=== PATIENT | female | born 1955 | race American Indian/Alaskan Native ===

== ENCOUNTER 2021-04-08 01:53 | Emergency (ER) | payer SELFPAY ==
[2021-04-08] MEDS ORDERED: SODIUM CHLORIDE 0.9% 1000 ML 1,000 ML IV ONE (03:14)
[2021-04-08] MEDS ORDERED: ONDANSETRON 4 MG/2 ML INJ IV ONE (03:15)
--- NOTE | 2021-04-08 03:15 | Emergency Department Report ---
ED General Adult HPI - General Chief complaint: Extremity Injury, Lower Stated complaint: LF ANKLE PAIN PUI?: No Time Seen by Provider: 04/08/21 03:11 Source: patient Mode of arrival: Ambulatory Limitations: Physical Limitation - History of Present Illness Initial comments: Patient is a 65-year-old female that presents emergency room with complaints of left ankle pain. Patient states she fell off her granddaughter scooter. P atient states the pain is a 10 out of 10. Patient states the pain is worsening. Patient denies loss of consciousness. Patient denies hitting her head. Patient denies other injury. While in triage, the patient was found to have low blood pressure 80/41. Patient denies other symptoms. Patient states she is normally hypertensive and has a past medical history of high blood pressure. Patient states she is compliant with her medications. Patient denies recent travel. Patient denies recent international travel. Patient denies exposure to the novel coronavirus. Patient denies sick contacts. Patient denies fever and chills. Patient denies cough. Patient denies diarrhea. Patient denies coming in contact with anybody with symptoms of the novel coronavirus. -: Sudden, hour(s) Location: left, lower extremity Radiation: non-radiation Severity scale (0 -10): 10 Quality: stabbing Consistency: constant Improves with: rest Worsens with: movement Associated Symptoms: denies: confusion, chest pain, cough, diaphoresis, fever/chills, headaches, loss of appetite, malaise, nausea/vomiting, rash, seizure, shortness of breath, syncope, weakness Treatments Prior to Arrival: none - Related Data Previous Rx's Medication Instructions Recorded Last Taken Type oxyCODONE /ACETAMINOPHEN [Percocet 1 tab PO Q4HR PRN #12 tab 04/08/21 Unknown Rx 5/325] Allergies Allergy/AdvReac Type Severity Reaction Status Date / Time No Known Allergies Allergy Unverified 04/08/21 02:32 ED Review of Systems ROS: Stated complaint: LF ANKLE PAIN Other details as noted in HPI Constitutional: denies: chills, fever Eyes: denies: eye pain, eye discharge, vision change ENT: denies: ear pain, throat pain Respiratory: denies: cough, shortness of breath, wheezing Cardiovascular: denies: chest pain, palpitations Endocrine: no symptoms reported Gastrointestinal: nausea. denies: abdominal pain, diarrhea Genitourinary: denies: urgency, dysuria, discharge Musculoskeletal: denies: back pain, joint swelling, arthralgia Skin: denies: rash, lesions Neurological: as per HPI. denies: headache, weakness, paresthesias Psychiatric: denies: anxiety, depression Hematological/Lymphatic: denies: easy bleeding, easy bruising ED Past Medical Hx - Past Medical History Previous Medical History?: Yes Hx Hypertension: Yes Hx Heart Attack/AMI: Yes (pacemaker) - Surgical History Past Surgical History?: Yes Additional Surgical History: pacemaker - Family History Family history: no significant - Social History Smoking Status: Never Smoker - Medications Home Medications: Home Medications Medication Instructions Recorded Confirmed Last Taken Type oxyCODONE /ACETAMINOPHEN [Percocet 1 tab PO Q4HR PRN #12 tab 04/08/21 Unknown Rx 5/325] ED Physical Exam - General Limitations: Physical Limitation General appearance: alert, in no apparent distress - Head Head exam: Present: atraumatic, normocephalic - Eye Eye exam: Present: normal appearance, PERRL Pupils: Present: normal accommodation - ENT ENT exam: Present: mucous membranes dry - Neck Neck exam: Present: normal inspection - Respiratory Respiratory exam: Present: normal lung sounds bilaterally. Absent: respiratory distress, wheezes, rales - Cardiovascular Cardiovascular Exam: Present: regular rate, normal rhythm. Absent: systolic murmur, diastolic murmur, rubs, gallop - GI/Abdominal GI/Abdominal exam: Present: soft, normal bowel sounds - Extremities Exam Extremities exam: Present: normal inspection - Back Exam Back exam: Present: normal inspection - Neurological Exam Neurological exam: Present: alert, oriented X3 - Psychiatric Psychiatric exam: Present: normal affect, normal mood - Skin Skin exam: Present: warm, dry, intact, normal color. Absent: rash ED Course Vital Signs 04/08/21 04/08/21 04/08/21 02:31 04:14 04:16 Temperature 97.9 F Pulse Rate 78 70 Respiratory 18 22 22 Rate Blood Pressure 144/84 Blood Pressure 80/41 [Left] O2 Sat by Pulse 100 94 93 Oximetry 04/08/21 04/08/21 04/08/21 04:30 04:46 05:00 Temperature Pulse Rate 73 72 73 Respiratory 23 22 28 H Rate Blood Pressure 142/70 147/73 148/76 Blood Pressure [Left] O2 Sat by Pulse 91 94 89 Oximetry - Reevaluation(s) Reevaluation #1: Patient IV placed. Patient's blood pressure was rechecked and it was 150/80. Patient's blood pressure has stabilized. Patient's blood pressure will be monitored. Patient's IV fluids will be held. Patient will be given pain medications. 04/08/21 04:00 Reevaluation #2: Patient patient's blood pressure has remained stable. 04/08/21 05:42 Reevaluation #3: Patient's blood pressure remained stable. Patient had a posterior splint placed by the nursing staff. Patient has neurovascular intact post splinting. Patient has good cap refill post splinting. I discussed all results and clinical findings with patient. I discussed plan of care with patient. Patient agrees with plan of care. Patient is stable for discharge. Patient will be discharged home. Patient given discharge instructions. Patient voiced understanding of discharge instructions. 04/08/21 05:55 ED Medical Decision Making - Lab Data Result diagrams: 04/08/21 04:04 04/08/21 04:04 - Radiology Data Radiology results: report reviewed, image reviewed interpreted by me: Left ankle x-ray: Distal tibial fibular fracture noted. LEFT ANKLE 2 VIEWS INDICATION / CLINICAL INFORMATION: Left ankle pain. COMPARISON: None available. FINDINGS: BONES and JOINT(S): An acute mildly displaced oblique fracture is noted along the distal fibular shaft. There is an acute comminuted fracture of distal tibial shaft. No significant arthritis. SOFT TISSUES: Mild edema is seen along the foot and ankle. ADDITIONAL FINDINGS: None. IMPRESSION: Acute left tibial and fibular fractures as above. - Medical Decision Making She is a 65-year-old female who presents emergency room with complaints of left ankle pain after a fall. Patient has a deformity of her left ankle. Patient had an x-ray which showed a distal tibial and fibular fracture. Patient in triage found to have low blood pressure. Patient's blood pressure was rechecked and was normal. Patient's pain was treated with Dilaudid. Patient responded well to treatment. Patient states her pain is much better. Patient had a posterior splint placed on her left lower extremity due to the fractures. Patient does not require further emergency medical services. Patient is stable for discharge. Patient discharged home. Patient not require inpatient services. Patient instructed to follow-up with Ortho. Patient instructed to keep her splint on until cleared by Ortho. - Differential Diagnosis Ankle pain, sprain, strain, fracture, contusion Critical care attestation.: If time is entered above; I have spent that time in minutes in the direct care of this critically ill patient, excluding procedure time. ED Disposition Clinical Impression: Left ankle pain Qualifiers: Chronicity: acute Qualified Code(s): M25.572 - Pain in left ankle and joints of left foot Ankle fracture Qualifiers: Encounter type: initial encounter Fracture type: closed Laterality: left Qualified Code(s): S82.892A - Other fracture of left lower leg, initial encounter for closed fracture Fracture, fibula Qualifiers: Encounter type: initial encounter Fibula location: distal Fracture type: closed Fracture morphology: other fracture Laterality: left Qualified Code(s): S82.832A - Other fracture of upper and lower end of left fibula, initial encounter for closed fracture Tibia fracture Qualifiers: Encounter type: initial encounter Tibia location: distal Fracture type: closed Fracture morphology: unspecified fracture morphology Laterality: left Qualified Code(s): S82.302A - Unspecified fracture of lower end of left tibia, initial encounter for closed fracture Disposition: DC- TO HOME OR SELFCARE Is pt being admited?: No Does the pt Need Aspirin: No Condition: Stable Instructions: Tibial and Fibular Fractures, Ankle Fracture, [id number] Additional Instructions: Patient to follow-up with primary care in 2 to 3 days. Patient to follow-up with orthopedist in 2 to 3 days. Patient to rest. Patient to increase water. Patient to avoid strenuous exercise or heavy lifting until cleared by orthopedist and primary care. Patient to keep splint on until removed by Ortho. Patient to be nonweightbearing. Patient to take Tylenol or ibuprofen as neede d for pain. Patient to take meds as directed. Patient to return to the ER if condition worsens, changes or new symptoms arise. Prescriptions: oxyCODONE /ACETAMINOPHEN [Percocet 5/325] 1 tab PO Q4HR PRN #12 tab PRN Reason: Pain , Severe (7-10) Referrals: PRIMARY CARE, [Primary Care Provider] - 2-3 Days MICHELLE ZIMMERMAN MD [Staff Physician] - 2-3 Days Time of Disposition: 05:47
--- NOTE | 2021-04-08 03:56 | XRay Report ---
LEFT ANKLE 2 VIEWS INDICATION / CLINICAL INFORMATION: Left ankle pain. COMPARISON: None available. FINDINGS: BONES and JOINT(S): An acute mildly displaced oblique fracture is noted along the distal fibular shaf t. There is an acute comminuted fracture of distal tibial shaft. No significant arthritis. SOFT TISSUES: Mild edema is seen along the foot and ankle. ADDITIONAL FINDINGS: None. IMPRESSION: Acute left tibial and fibular fractures as above. Signer Name: Phan Morales MD Signed: 04/08/2021 3:52 AM Workstation Name: [id number]
[2021-04-08 04:29] LABS: Hematocrit 38.1 % (30.3-42.9); Hemoglobin 13.4 gm/dl (10.1-14.3); Mean Corpuscular HGB Conc 35 % (30-34); Mean Corpuscular Volume 93 fl (79-97); Platelet Count 201 K/mm3 (140-440); Red Blood Count 4.09 M/mm3 (3.65-5.03); Red Cell Distribution Width 14.5 % (13.2-15.2)
[2021-04-08 04:59] LABS: Albumin 4.6 g/dL (3.9-5); Calcium 9.1 mg/dL (8.4-10.2)
[2021-04-08] MEDS ORDERED: HYDROmorphone 1 MG/1 ML INJ IV ONE (05:00)
[2021-04-08 05:14] VITALS: BP 148/76
[2021-04-08] MEDS ORDERED: ONDANSETRON 4 MG/2 ML INJ ONE (05:16)
== END 2021-04-08 06:30 | disposition home or self-care (01) ==
LOC: ED 01:53
DX: S82.832A Other fracture of upper and lower end of left fibula, initial encounter for closed fracture (principal); S82.302A Unspecified fracture of lower end of left tibia, initial encounter for closed fracture; I10 Essential (primary) hypertension; R03.0 Elevated blood-pressure reading, without diagnosis of hypertension; V89.9XXA Person injured in unspecified vehicle accident, initial encounter; Y93.89 Activity, other specified; Y92.89 Other specified places as the place of occurrence of the external cause; Y99.8 Other external cause status
CPT/HCPCS: 29515; 36415; 73600; 80053; 85027; 96374; 96375; 99284; J1170; J2405